=== PATIENT | male | born 1985 | race Hispanic/Latino ===

== ENCOUNTER 2020-11-30 15:35 | Emergency (ER) | payer SELFPAY ==
[2020-11-30] MEDS ORDERED: CASIRIVIMAB/IMDEVIMAB 10 ML in SODIUM CHLORIDE 0.9% 100 ML IV ONE (16:15)
[2020-11-30] MEDS ORDERED: ACETAMINOPHEN 325 MG TAB PO ONE (16:30)
== END 2020-11-30 18:00 | disposition home or self-care (01) ==
LOC: ER 16:15
DX: R50.9 Fever, unspecified (principal); R05 Cough; U07.1 COVID-19
CPT/HCPCS: 99282; U0002